=== PATIENT | male | born 1975 ===

== ENCOUNTER 2016-10-19 19:18 | Emergency (ER) | payer OTHER ==
[2016-10-19 19:56] VITALS: BP 132/85; PULSE 95; RESP 16; TEMP 98.4; O2SAT 98
--- NOTE | 2016-10-19 20:12 | C.PDOC ---
History Of Present Illness 41 year old male who presents to the ER with a complaint of pruritus to the nose and throat for the last few months. Patient states he has seen an ENT twice and has been put on unknown medications; patient states the first medication made his stomach upset and the second one made his nose itch more. Denies exposure to possible allergens, difficulty breathing, difficulty swallowing, fever, or chills. Time Seen by Provider: 10/19/16 20:00 Chief Complaint (Nursing): ENT Problem History Per: Patient History/Exam Limitations: None Onset/Duration Of Symptoms: Days Current Symptoms Are (Timing): Still Present Symptoms Have Been: Continuous Past Medical History Reviewed: Historical Data, Nursing Documentation, Vital Signs Vital Signs: Last Vital Signs Temp 98.4 F 10/19/16 19:54 Pulse 95 H 10/19/16 19:54 Resp 16 10/19/16 19:54 BP 132/85 10/19/16 19:54 Pulse Ox 98 10/19/16 20:13 - Medical History PMH: No Chronic Diseases Surgical History: No Surg Hx Family History: States: Unknown Family Hx - Social History Hx Tobacco Use: No Hx Alcohol Use: No Hx Substance Use: No - Immunization History Hx Tetanus Toxoid Vaccination: No Hx Influenza Vaccination: No Hx Pneumococcal Vaccination: No Review Of Systems Constitutional: Negative for: Fever, Chills ENT: Negative for: Nose Pain, Nose Discharge Respiratory: Negative for: Cough, Wheezing Skin: Positive for: Other (Itchiness) Physical Exam - Physical Exam Appears: Non-toxic, No Acute Distress Skin: Normal Color, Warm, Dry Head: Atraumatic, Normacephalic Nose: Normal, No Discharge, No Deformity, No Tenderness Oral Mucosa: Moist Throat: Normal, No Erythema, No Exudate Neck: Normal, Supple Chest: Symmetrical, No Tenderness Cardiovascular: Rhythm Regular, No Murmur Respiratory: Normal Breath Sounds, No Rales, No Rhonchi, No Wheezing Gastrointestinal/Abdominal: Soft, No Tenderness Neurological/Psych: Oriented x3, Normal Speech, Normal Cognition ED Course And Treatment O2 Sat by Pulse Oximetry: 98 (Room air) Pulse Ox Interpretation: Normal Progress Note: Patient advised to follow up with ENT, will discharge home. Disposition - Disposition Referrals: Raimundo Amezcua MD [Staff Provider] - Disposition: HOME/ ROUTINE Disposition Time: 20:09 Condition: STABLE Additional Instructions: Follow up with ENT specialist within 1-2 days. Return to ED if feel worse. Prescriptions: Fexofenadine HCl [JudithNf] 180 mg PO DAILY #20 tab Fluticasone Nasal [Flonase] 1 spr NS DAILY #1 spr Instructions: Allergies (ED) Forms: [employer] (Polish) Print Language: SWAZI - Clinical Impression Clinical Impression: Allergic rhinitis - Scribe Statement The provider has reviewed the documentation as recorded by the [place] All medical record entries made by the [place] were at my direction and personally dictated by me. I have reviewed the chart and agree that the record accurately reflects my personal performance of the history, physical exam, medical decision making, and the department course for this patient. I have also personally directed, reviewed, and agree with the discharge instructions and disposition.
== END 2016-10-19 20:32 | disposition home or self-care (01) ==
LOC: C.ER 19:18
DX: J30.9 Allergic rhinitis, unspecified (principal)